=== PATIENT | female | born 1990 ===

== ENCOUNTER 2024-07-15 21:15 | Emergency (ER) | payer OTHER, SELFPAY ==
[2024-07-15 21:21] VITALS: BP 136/92
--- NOTE | 2024-07-15 22:08 | ED.GENMED ---
History of Present Illness
General
Chief Complaint: Skin Surface Trauma
Time Seen by Provider: 07/15/24 22:07
History of Present Illness
History of Present Illness:
HPI: Patient came in from home as the shower door shattered while she was in the bathroom and has multiple lacerations to the extremities and is 9 weeks . She has no bony pain and does not have a sensation of foreign body/glass in the
lacerations. However she does report some paresthesias to the right hand as well as some inability to extend at the left third digit.
EXAM:
GENERAL: Well appearing in no distress
HEENT: Moist oral mucosa
NEUROLOGIC: Excellent strength all extremities, no obvious coordination deficits
PSYCHIATRIC: Appropriate mental status, normal insight and judgement
EXTREMITIES: There are two 1 cm curvilinear lacerations just proximal to the dorsal aspect of the left third digit, I do have concern for the possibly of tendon rupture at the more proximal laceration as she is unable to extend at the MCP of the
third digit, she has some vague sensory changes to palpation of the dorsal radial side of the right hand, there is a 3 cm laceration near the radial styloid with no bony tenderness
SKIN: No rash, no lesions
TIME OF INITIAL ENCOUNTER: 10:45 PM
NUMBER AND COMPLEXITY OF PROBLEMS ADDRESSED AT THE ENCOUNTER
� Chronic conditions affecting care: The patient is 9 weeks currently, otherwise no significant past medical history
� Acute Exacerbation and/or Progression of Chronic Illness: This is an acute problem
� Differential Diagnosis includes: Retained foreign body, laceration, tendon rupture, highly doubt fracture based on physical examination
AMOUNT AND/OR COMPLEXITY OF DATA TO BE REVIEWED AND ANALYZED
� I performed an independent evaluation of and my interpretation is:
EKG:
CT:
X-rays:
Laboratory Studies:
Other:
� Review of other/old records: The patient was here in January 2022 with a vaginal delivery
� Clinical information was obtained by an independent historian: None needed
� Prescriptions/Medications Considered but not given:
� Further testing considered but not performed: No clear indication for imaging at this time as the wounds were copiously and meticulously irrigated and examined for foreign body and there is no bony tenderness
RISK OF COMPLICATIONS AND/OR MORBIDITY OR MORTALITY OF PATIENT MANAGEMENT
� Social determinants of health affecting care: Lives at home
� Discussion with other providers:
� Escalation of care including admission/observation vs risk of discharge considered: Lacerations cleaned and repaired. Suspect extensor tendon rupture at the left third MCP�splinted. Also suspect some cutaneous nerve
dysfunction/mild sensory deficits to the right wrist/hand.
Phy Exam
Physical Exam
Physical Exam:
See HPI
Course
Orders/Labs/Results
Orders:
Orders
07/15/24 23:26
Aluminium Finger Splint Left ONCE
Tetanus/Diphth/Acelpertussis [Adacel] 0.5 ml IM .ONCE ONE
Vital Signs
Initial and Last Documented VS:
Initial Vital Signs
Temp Pulse Resp BP Pulse Ox
98.9 F 92 18 136/92 100
07/15/24 21:21 07/15/24 21:21 07/15/24 21:21 07/15/24 21:21 07/15/24 21:21
Last Documented Vital Signs
Temp Pulse Resp BP Pulse Ox
98.9 F 92 18 136/92 100
07/15/24 21:21 07/15/24 21:21 07/15/24 21:21 07/15/24 21:21 07/15/24 21:21
Procedures
Laceration Closure
Left Dorsal Hand:
Size of Wound in cm: 2
Anesthesia: 1% Lidocaine
Revision/Debridement: routine- no revision
Wound exploration: explored to base- no FB
Type of Closure: single layer closure and interrupted sutures
Skin Closure Material: 4-0 prolene
Number of sutures: 3
Right Wrist:
Status of Wound: clean
Size of Wound in cm: 3
Description of Wound Edges: sharp
Preparation: cleaned with saline and other (Chlorhexidine)
Anesthesia: 1% Lidocaine
Revision/Debridement: routine- no revision
Wound exploration: explored to base- no FB
Type of Closure: interrupted sutures
Skin Closure Material: 4-0 prolene
Number of sutures: 6
*Critical Care Note
Total Time (30-74mins, 75-104mins- exclusive of procedures): Not Applicable
ED Attending Note
-
Portions of this chart may have been created with voice recognition software.� Occasional wrong word or��sound alike� substitutions may have occurred due to the inherent limitations of voice recognition software.
Discharge Plan
Departure
Patient Disposition: Home (Routine Discharge)
Date of Disposition: 07/15/24
Time of Disposition: 23:14
Patient with high blood pressure during this ER visit?: Yes
Discharge Problem:
Laceration of left hand involving tendon, Laceration of right hand
Instructions: Tendon Laceration (DC), Laceration
Prescriptions:
No Action
[id number] fum-folic 1 EACH tablet
1 ea PO DAILY
acetaminophen 325 MG tablet
650 mg PO Q4HPRN PRN (Reason: mild pain) 0RF
ibuprofen 600 MG tablet
600 mg PO Q4HPRN PRN (Reason: moderate pain/cramps) 0RF
Referrals:
Nicho Kenyon MD [Active] - Next open appointment
Activity Restrictions/Additional Instructions:
Regarding her left hand, the more proximal laceration is rather deep and you do have inability to extend at the left third digit. Therefore I am concerned about extensor tendon rupture�I recommend follow-up with orthopedics such as Dr. Kenyon.
Call their office tomorrow to arrange follow-up by next week. The stitches should be removed by your doctor in approximately 10 days. I cleaned and irrigated the wounds and I see no evidence for glass.
Interventions
Interventions:
*Risk Screen - Suicide Last Done: 07/15/24 22:11
*General Assessment Last Done: 07/15/24 22:11
*Neglect/Abuse Screening Last Done: 07/15/24 22:11
ED- Fall Risk Assessment Last Done: 07/15/24 22:12
*ED COVID-19 Vaccine History Last Done: 07/15/24 22:11
ED-Skin Assessment Last Done: 07/15/24 22:12
Discharge Date and Time
Print Language: MALIAN
[2024-07-15 22:10] VITALS: BMI 33.6
[2024-07-15] MEDS: ADACEL 0.5 ML IM (23:52)
== END 2024-07-16 00:32 | disposition home or self-care (01) ==
LOC: EMR 21:15
PROVIDERS: EMERGENCY PHYSICIAN Emergency Medicine; FAMILY PHYSICIAN Family Medicine
DX: O9A.211 Injury, poisoning and certain other consequences of external causes complicating pregnancy, first trimester (principal); S66.922A Laceration of unspecified muscle, fascia and tendon at wrist and hand level, left hand, initial encounter; S61.411A Laceration without foreign body of right hand, initial encounter; Z3A.09 9 weeks gestation of pregnancy; W25.XXXA Contact with sharp glass, initial encounter; Y92.002 Bathroom of unspecified non-institutional (private) residence as the place of occurrence of the external cause; Z23 Encounter for immunization; R03.0 Elevated blood-pressure reading, without diagnosis of hypertension
CPT/HCPCS: 12042; 99283; 90471; 29130; 90715

== ENCOUNTER 2024-07-23 06:19 | Day surgery (SDC) | payer OTHER, SELFPAY ==
[2024-07-23 13:04] VITALS: BMI 31.7
[2024-07-23 13:05] VITALS: BP 122/74
[2024-07-23 18:18] VITALS: BP 88/64
[2024-07-23 18:30] VITALS: BP 111/78
== END 2024-07-23 18:50 | disposition home or self-care (01) ==
LOC: SDS 06:19
PROVIDERS: ATTENDING PHYSICIAN Orthopaedic Surgery
DX: S56.424A Laceration of extensor muscle, fascia and tendon of left middle finger at forearm level, initial encounter (principal); X58.XXXA Exposure to other specified factors, initial encounter; O26.891 Other specified pregnancy related conditions, first trimester; Z3A.10 10 weeks gestation of pregnancy
CPT/HCPCS: 26356